=== PATIENT | female | born 1980 | race Caucasian/White ===

== ENCOUNTER 2020-10-17 07:56 | Emergency (ER) | payer BC ==
[~2020-10-17] VITALS: Ht 165.1 cm; Wt 70.5 kg
[~2020-10-17 07:56] MED LIST: MOTRIN 800800 MG/TAB PO; PERCOCET 325 MG1 TA2 PO; PRENATAL1 TA7 PO; ZANTAC 150MG T150 MG PO
[2020-10-17 08:10] VITALS: TEMP 97.9
[2020-10-17 08:47] LABS: COLLECTION METHOD CLEAN CATCH
[2020-10-17 08:52] LABS: BASO % 0.3 % (0.0-2.0); EOS # 0.2 (0.0-0.7); EOS % 2.2 % (0-4.0); GRAN # 6.1 (1.4-6.5); GRAN % 76.7 % (42.2-75.2); HEMATOCRIT 43.8 % (37.0-47.0); HEMOGLOBIN 14.4 g/dl (12.5-16.0); LYMPH # 1.1 (1.2-3.4); LYMPH % 14.3 % (20.0-51.0); MEAN CELL VOLUME 89 fl (80.0-100.0); MEAN CORPUSCULAR HEMOGLOBIN 29 pg (27.0-31.0); MEAN CORPUSCULAR HGB CONC 33 g/dl (33.0-37.0); MEAN PLATELET VOLUME 11.4 fl (7.4-10.4); MONO # 0.5 (0.1-0.6); MONO % 6.1 % (1.7-9.3); PLATELET COUNT 197 K/mm3 (130-400); RED BLOOD COUNT 4.93 M/mm3 (4.10-5.30); REDCELL DISTRIBUTION WIDTH-CV 12.7 % (11.5-14.5)
[2020-10-17 08:57] LABS: AMORPHOUS CRYSTAL Present /uL; MUCOUS Present /lpf; PH 9 (5-8); URINE APPEARANCE Turbid; URINE BACTERIA Rare /hpf; URINE BILIRUBIN Negative (NEGATIVE); URINE BLOOD Negative (NEGATIVE); URINE COLOR Yellow; URINE GLUCOSE Negative (NEGATIVE); URINE KETONE Negative (NEGATIVE); URINE LEUKOCYTE ESTERASE Negative (NEGATIVE); URINE NITRATE Negative (NEGATIVE); URINE PROTEIN(semi-quant) 1+ (NEGATIVE); URINE RBC 0-2 /hpf; URINE UROBILINOGEN Negative (NEGATIVE)
[2020-10-17 09:02] LABS: ALANINE AMINOTRANSFERASE 29 U/L (4-34); ALBUMIN 4.1 gm/dL (3.5-5.0); ALKALINE PHOSPHATASE 78 U/L (50-136); ANION GAP 10 mmol/L (7-16); AST,SGOT 23 U/L (15-37); BILIRUBIN,TOTAL 0.2 mg/dL (0.0-1.0); BLOOD UREA NITROGEN 21 mg/dL (7-17); CALCIUM 9.1 mg/dL (8.4-10.2); CARBON DIOXIDE 22 mmol/L (22-30); CHLORIDE 106 mmol/L (98-107); CREATININE, serum 0.76 (0.52-1.25); GLUCOSE 118 mg/dL (74-106); POTASSIUM 3.9 mmol/L (3.4-5.0); SODIUM 137 mmol/L (137-145); TOTAL PROTEIN 7.3 gm/dL (6.4-8.2)
[2020-10-17 09:15] LABS: TROPONIN-I < 0.012 ng/mL (0.000-0.035)
[2020-10-17] MEDS ORDERED: ZOFRAN ODT4 MG PO (10:00)
[2020-10-17 10:33] VITALS: BP 132/87; PULSE 80
== END 2020-10-17 10:36 | disposition home or self-care (01) ==
LOC: COL.ER 07:56
PROVIDERS: Emergency Medicine
DX: R42 Dizziness and giddiness (principal); R11.0 Nausea; Z86.16 Personal history of COVID-19; Z88.0 Allergy status to penicillin; Z32.02 Encounter for pregnancy test, result negative
CPT/HCPCS: J2405; J7030